=== PATIENT | male | born 1950 | race Caucasian/White ===

== ENCOUNTER 2024-05-08 10:54 | Inpatient (IN) | payer MEDICARE, OTHER, SELFPAY ==
[2024-05-08] VITALS (10 sets, daily range): BP systolic 97–155; BP diastolic 58–81; BMI 28.4; BMI 27.8
[2024-05-08 08:09] LABS: % Basophils 0.3 % (0-2); % Eosinophils 0.1 % (0-6); % Immature Granulocytes 0.7 % (0-0.5); % Lymphocytes 2.1 % (20.5-51.1); % Monocytes 2.9 % (1.7-9.3); % Neutrophils 93.9 % (42.2-75.2); Absolute Immature Granulocytes 0.1 10^3/uL (0-0.05); Absolute Lymphocytes 0.3 10^3/uL (1.2-3.4); Absolute Monocytes 0.5 10^3/uL (0.1-0.6); Absolute Neutrophils 14.6 10^3/uL (1.4-6.5); Hematocrit 43.9 % (39.0-52.0); Hemoglobin 14.6 g/dL (13.0-18.0); Mean Corp Hgb Conc. 33.3 g/dL (33.0-37.0); Mean Corpuscular Volume 87.3 fL (80.0-94.0); Mean Platelet Volume 10.4 fL (7.4-10.4); Nucleated Red Blood Cells % 0 % (-); Platelet Count 203 10^3/uL (130-400); Red Blood Cell Count 5.03 10^6/uL (4.70-6.10); Red Cell Dist. Width 13.5 % (11.5-14.5); White Blood Cell Count 15.5 10^3/uL (4.8-10.8)
[2024-05-08 08:23] LABS: ALT (SGPT) 17 U/L (0-50); AST (SGOT) 25 U/L (17-59); Alkaline Phosphatase 111 U/L (38-126); Blood Urea Nitrogen 20 mg/dl (9-20); Calcium 8.8 mg/dl (8.4-10.2); Carbon Dioxide 31 mmol/L (22-30); Chloride 99 mmol/L (98-107); Estimated Creatinine Clearance 47 ml/min; Glucose 117 mg/dl (70-99); Potassium 4.2 mmol/L (3.5-5.1); Sodium 138 mmol/L (135-145); Total Bilirubin 1.2 mg/dl (0.2-1.3); Total Protein 6.1 g/dl (6.3-8.2); eGFR 52.41
[2024-05-08] MEDS: DUONEB 3 ML INH (08:59)
--- NOTE | 2024-05-08 09:00 | ED.GENMED ---
History of Present Illness
General
Chief Complaint: Fall
Source: patient and ambulance crew
Exam Limitations: none
Time Seen by Provider: 05/08/24 08:34
Nursing documentation reviewed up to this point in time: agreed with
History of Present Illness
History of Present Illness:
74-year-old male presents emergency department complaining of a fall this morning. He complains of left hip pain and weakness. He uses medical marijuana for cancer. She has frequent falls.
Past History
Past History
ED Past Medical History: Cancer (Throat, prostate, skin), COPD, GERD (Hiatal hernia), HTN, Hypercholesterolemia and Hypothyroidism
ED Past Surgical History: Orthopedic and Other (Resection of throat cancer)
Social History
Tobacco: Non-smoker
Alcohol: None
Drug: None
Review of Systems
Review of Systems
Allergies reviewed?: Yes
All Other Systems: Not applicable
Constitutional: Reports no symptoms
EENT: Reports no symptoms
Respiratory: Reports trouble breathing
Cardiac: Reports no symptoms
ABD/GI: Reports no symptoms
: Reports no symptoms
Musculoskeletal: Reports no symptoms
Skin: Reports no symptoms
Neurological: Reports weakness
Endocrine: Reports no symptoms
Hematologic/Lymphatic: Reports no symptoms
Psychiatric: Reports no symptoms
Phy Exam
Physical Exam
Physical Exam:
Physical Exam
General: Appears frail, afebrile
Neck: supple. no meningeal signs. normal posterior pharynx
Heart: s1/s2 regular rate and rhythm, no murmur. equal radial
pulses.
HEENT: Pupils equal round reactive to light, EOMI
Lungs: Mild respiratory distress. Decreased breath sounds at bases bilaterally
Abdomen: normal bowel sounds. not tender. no CVAT
Neuro: alert and oriented. no focal neurological deficits cranial nerves II through XII intact
Skin: no rash
Psychiatric: well kept. interactive and cooperative
Extremities: no edema. no calf tenderness. negative homans. good distal pulses
Course
Orders/Labs/Results
Orders:
Orders
05/08/24 Breakfast
Cholesterol Lowering
At Your Request: Full Participation
Does patient need a safe tray?: No
Cholesterol Lowering: Sodium, 2 Gram
05/08/24 07:52
Electrocardiogram (*1) Urgent
Reason for Study: Fatigue / Weakness
05/08/24 07:53
EKG- Treatment ONCE
05/08/24 07:55
COVID-19 Antigen Urgent
Source: Nasal Swab
05/08/24 07:58
Complete Blood Count/With Diff Urgent
Comprehensive Metabolic Panel Urgent
TSH Urgent
Comment: ADD ON
05/08/24 08:50
Ipratropium/Albuterol Sulfate [Duoneb] 3 ml INH R NOW ONE
05/08/24 08:51
CR Chest - 2 Views Urgent
Comment:
Reason For Exam: hypoxia, decreased lower breath sounds
05/08/24 08:52
Hip, Left 2-3 Views [CR Hip - LT w/wo Pel 2-3 Vw*] Urgent
Comment:
Reason For Exam: left hip pain
Include a pelvis x-ray?: Yes
05/08/24 09:00
Influenza A+B Rapid Molecular Urgent
JEAN Source: Nasal Swab
Specimen Description:
05/08/24 09:52
Azithromycin 500 mg/250 ml [Zithromax Infusion] 500 mg in 250 ml IV NOW
CefTRIAXone [Rocephin] 2,000 mg IV NOW STA
05/08/24 09:59
Sterile Water [Sterile Water For Injection] 20 ml .ROUTE .STK-MED
05/08/24 10:08
Blood Culture Q30M
JEAN Source: Blood/Venous
Specimen Description:
Aztreonam [Azactam] 2,000 mg IV NOW STA
MetroNIDAZOLE 500 MG/100 ML [Flagyl 500 mg] 100 ml IV NOW
Vancomycin [Vancocin] 2,000 mg 0.9% Sodium Chloride 500 ml [Nss] 500 ml IV NOW
05/08/24 10:09
Blood Culture Q30M
JEAN Source: Blood/Venous
Specimen Description:
05/08/24 10:30
Add On- LAB Urgent
Tests Added?: TSH
0.9% Sodium Chloride 1000 ml [Nss] 1,000 ml IV 80 mls/hr
05/08/24 10:35
Admit/Transfer Patient As Directed
Co-Sign Provider:
Level of Care: Inpatient admission
Assign to:: Medical/Surgical
Physician / Group: Hospitalist
Diagnosis: CAP
Reason for Hospitalization: CAP
Expected length of stay greater than two midnights?: Yes
ELOS- Estimated Length of Stay in days: 3
I certify the patient meets the requirements for IP care: Yes
PRN Pain Medication Management As Directed
May give lesser potent ordered pain med per pt: Yes
preference::
Protocol:: Medication orders for pain may be administered in a
manner that supports deferring to patient preference
when the pt is:
- Requesting an ordered lesser potent pain medication.
Least to most potent pain medications are defined
as: acetaminophen < NSAID < tramadol < opioids
(morphine, oxycodone, hydromorphone).
- Requesting a lesser dose of the same medication IF
ORDERED.
- Requesting a less intrusive route of administration
if both routes are prescribed by the provider (PO <
IV).
05/08/24 10:37
Code Status As Directed
Resuscitation Status: Full Code
05/08/24 10:42
Ot Eval And Treat Routine
Pt Eval And Treat Routine
Activity Level: Out of Bed-Early Mobility
05/08/24 11:15
DDimer [D-Dimer] Urgent
Procalcitonin Urgent
PCT Algorithmm Indication: Respiratory
05/08/24 12:28
Acetaminophen [Tylenol] 650 mg PO Q4HPRN PRN
Albuterol [ProAIR HFA INHALER] 2 puff INH R Q4HPRN PRN
Bisacodyl [Dulcolax] 10 mg RECTAL [id number] PRN
Docusate W/Senna [Senokot-S] 1 tablet PO BIDPRN PRN
Ipratropium/Albuterol Sulfate [Duoneb] 3 ml INH R Q4HPRN PRN
Polyethylene Glycol Powder [Miralax] 17 grams PO DAILYPRN PRN
Prednisone [Deltasone] 40 mg PO DAILY
05/08/24 12:28
Sputum Culture [Respiratory Culture/Gram Stain] Routine
JEAN Source: Sputum
Specimen Description:
Activity As Directed
Activity Level: Out of Bed-Early Mobility
Bladder Scan As Directed
Follow Bladder Retention/Intermittent Cath Algorithm?: Yes
PRN if no void in __ hours: 6
Frequency: Per Retention Algorithm
If Bladder Scan Result >: 400
then:: Straight cath
Straight Cath As Directed
Frequency: Per Retention Algorithm
Additional Instructions: straight cath as needed per acute urinary retention algorithm for 24 hrs
Additional Instructions: for bladder scan greater than 400 mL
Vital Signs As Directed
Frequency: Per unit guidelines
O2 Therapy [RESP] Routine
Titrate/Wean O2 to maintain O2 sat greater than (%): 90
DX Deep Vein Thrombosis Video Routine
05/08/24 12:37
Hydrocodone 5/APAP 325 [[place] 5/325] 1 tablet PO Q8H PRN
05/08/24 13:03
Urine Creatinine Routine
Date Specimen was Collected: 05/08/24
Time Specimen was Collected: 13:01
Urine Culture Reflexed from UA [Urinalysis Reflex To Culture] Routine
Date Specimen was Collected: 05/08/24
Time Specimen was Collected: 13:01
Urine Sodium Routine
Date Specimen was Collected: 05/08/24
Time Specimen was Collected: 13:01
Legionella Urinary Antigen Routine
JEAN Source: Urine
Specimen Description:
Strep pneumoniae Antigen Routine
JEAN Source: Urine
Specimen Description:
05/08/24 14:00
CefTRIAXone [Rocephin] 1,000 mg IV Q24H
05/08/24 16:00
Heparin 5,000 units SC Q8
05/08/24 20:00
Doxycycline [Vibramycin] 100 mg PO Q12
Fluticasone/Salmeterol 115/21 [Advair Hfa 115/21 Mcg Inhaler] 2 puff INH R BID
05/08/24 22:00
Temazepam [Restoril] 30 mg PO HS
05/09/24 06:00
Complete Blood Count/With Diff IN AM
Comprehensive Metabolic Panel IN AM
Levothyroxine [Synthroid] 50 mcg PO DAILY@0600
05/09/24 08:00
Montelukast Sodium [Singulair] 10 mg PO DAILY
Multivitamin [Theragran] 1 tablet PO DAILY
Pantoprazole [Protonix] 40 mg PO DAILY
Abnormal Lab Results
05/08/24
07:58
WBC 15.5 H 10^3/uL
(4.8-10.8)
Abs Immat Gran (auto) 0.1 H 10^3/uL
(0-0.05)
Absolute Neuts (auto) 14.6 H 10^3/uL
(1.4-6.5)
Absolute Lymphs (auto) 0.3 L 10^3/uL
(1.2-3.4)
Immature Gran % 0.7 H %
(0-0.5)
Neutrophils % 93.9 H %
(42.2-75.2)
Lymphocytes % 2.1 L %
(20.5-51.1)
Carbon Dioxide 31 H mmol/L
(22-30)
Creatinine 1.4 H mg/dL
(0.7-1.3)
Glucose 117 H mg/dl
(70-99)
Total Protein 6.1 L g/dl
(6.3-8.2)
05/08/24 07:58
05/08/24 07:58
Vital Signs
Initial and Last Documented VS:
Initial Vital Signs
Temp Pulse Resp BP Pulse Ox
97.9 F 98 16 140/70 91
05/08/24 07:46 05/08/24 07:46 05/08/24 07:46 05/08/24 07:46 05/08/24 07:46
Last Documented Vital Signs
Temp Pulse Resp BP Pulse Ox
98.1 F 101 16 155/81 96
05/08/24 13:02 05/08/24 13:02 05/08/24 13:02 05/08/24 13:02 05/08/24 13:55
MDM/Problems Addressed
Differential Diagnosis Includes:
Pneumonia, CHF
MDM/Problems Addressed:
74-year-old male with pneumonia. Admit to hospitalist.
Chronic conditions affecting care: COPD
Acute Exacerbation and/or Progression of Chronic Illness: COPD
*Radiology
Radiology exam reviewed: radiology read reviewed (Chest x-ray shows right-sided pneumonia)
*Pulse Oximetry
Patient hypoxic: yes
*EKG
EKG Intrepretation Date: 05/08/24
EKG Intrepretation Time: 07:57
Interpretation: normal
Comparison EKG: no changes
Heart Rate: 95
Rate: normal
Rhythm: sinus
[place]: normal axis
Interval: normal interval
QRS Pattern: normal QRS
Ischemia: no ischemia
*Rv Repair Technician Interpretation
Rate: normal
Interpretation: normal
Heart Rate: 95
Rhythm: sinus
*Critical Care Note
Total Time (30-74mins, 75-104mins- exclusive of procedures): Not Applicable
Data Reviewed
Review of Other/Old Records Reveals: Labs
Further Testing Considered But Not Given:
admit indicated
Patient Management
Social determinants of health affecting care: Living situation and Strong social support
Discussion with other providers: Hospitalist
Escalation/DeEscalation of care consider admission/obs:
admit indicated
ED Attending Note
-
Portions of this chart may have been created with voice recognition software.� Occasional wrong word or��sound alike� substitutions may have occurred due to the inherent limitations of voice recognition software.
Discharge Plan
Departure
Patient Disposition: Admit
Date of Disposition: 05/08/24
Time of Disposition: 09:57
Admit to: Telemetry
Presentation/result/management discussed w/ accepting MD/DO: Hospitalist
Patient with high blood pressure during this ER visit?: Yes
Condition: Fair
Discharge Problem:
Pneumonia involving right lung, Fall, Acute renal failure
Interventions
Interventions:
*Risk Screen - Suicide Last Done: 05/08/24 07:46
*General Assessment Last Done: 05/08/24 07:46
*Neglect/Abuse Screening Last Done: 05/08/24 07:46
ED- Fall Risk Assessment Last Done: 05/08/24 07:46
*ED COVID-19 Vaccine History Last Done: 05/08/24 07:46
*Nursing Disposition Last Done: 05/08/24 12:30
ED-Musculoskeletal Assessment Last Done: 05/08/24 07:46
ED- Neurological Assessment Last Done: 05/08/24 07:46
ED-Skin Assessment Last Done: 05/08/24 07:46
Discharge Date and Time
Discharge Date/Time: 05/08/24 12:31
[2024-05-08 09:23] LABS: COVID-19 Antigen Negative (Negative)
[2024-05-08] MEDS: AZACTAM 2000 MG IV (10:18)
[2024-05-08] MEDS: FLAGYL 500 MG 100 IV (10:22)
--- NOTE | 2024-05-08 10:41 | HPS.HSE ---
Family Physician
-
Family Physician: Rob Seth
Chief Complaint
-
weakness
History of Present Illness
74yo M with skin CA, throat CA, prostate CA, hypothyroidism, spinal stimulator, COPD, [facility] with profound weakness. He fell from his bed and could not get up this AM. While in ED he was found to have RUL and RML pneumonia. On
bedside assessment - patient has no focal neurological deficit, denied LOC, no LE paresthesia, no cough, fever, chest pain.
No overt hip pain, XR pending, but clinically no cocern for Fx
Medical History
Past Medical History
Past Medical History: Reports Other
Additional Past Medical History:
see HPI
Past Surgical History: Reports Other
Additional Past Surgical History:
See HPI
Social History
Tobacco: Former Smoker
Alcohol: None
Drug: Marijuana
Family History
Family History: Not pertinent
Allergies / Home Medications
Allergies reflects when Allergies were last updated in [facility].
Home Medications with original date entered in [facility]
Allergy/Medication List:
Allergies
Allergy/AdvReac Type Severity Reaction Status Date / Time
Penicillins Allergy Unknown Nausea / Verified 05/08/24 07:57
Vomiting
Home Medications
levothyroxine 50 mcg tablet 50 mcg PO DAILY Thyroid 09/04/18
multivitamin with folic acid 400 mcg tablet (Tab-A-Allyson) 1 tab PO DAILY Supplement 09/04/18
gabapentin 300 mg capsule 300 mg PO TID Pain 02/17/20
rosuvastatin 10 mg tablet 10 mg PO QPM High cholesterol 02/17/20
albuterol sulfate 90 mcg/actuation aerosol inhaler 2 puff inhalation R Q4HPRN PRN sob 03/19/20
temazepam 15 mg capsule 30 mg PO HS Sleep 03/19/20
cevimeline 30 mg capsule (Evoxac) 30 mg PO TID DRY MOUTH 12/25/20
fluticasone 100 mcg-salmeterol 50 mcg/dose blistr powdr for inhalation 1 puff inhalation R DAILY Lung/breathing issues 12/25/20
montelukast 10 mg tablet 10 mg PO DAILY Lung/breathing issues 12/25/20
prednisolone 15 mg/5 mL oral solution 1 drp BOTH EYES DAILY Anti-inflammatory 12/25/20
pantoprazole 40 mg tablet,delayed release 40 mg PO DAILY #30 tabs 12/27/20
cyclobenzaprine 10 mg tablet 10 mg PO TID PRN muscle spasm #10 tabs 11/08/22
hydrocodone 5 mg-acetaminophen 300 mg tablet 1 tab PO Q8H PRN Pain #14 tabs 11/08/22
Review of Systems
-
History Source: Patient
A 12 point ROS was completed and negative except as noted: Yes
Constitutional: Reports See HPI
Physical Exam
Vital Signs
Vital Signs
Temp Pulse Resp BP Pulse Ox
97.9 F 97 17 124/67 94
05/08/24 07:46 05/08/24 10:15 05/08/24 10:15 05/08/24 10:00 05/08/24 10:15
Physical Exam
General: Well Developed, Well Nourished and No Apparent Distress
HEENT: NormoCephalic, Anicteric and Moist mucous membranes
Respiratory: Clear; No Wheezes, Rales or Crackles
Cardiac: S1/S2 and Regular Rhythm; No Murmur
GI: Soft, Non Tender and Non Distended
Genito-urinary: No costovertebral tender
Musculoskeletal: No Clubbing, No Cyanosis and No Edema
Skin: Warm; No Rash or Jaundice
Neuro: Awake, Alert, Oriented and AO x 3
Psych: Calm
Laboratory Results
-
05/08/24 07:58
05/08/24 07:58
Laboratory Results
Total Bilirubin 1.2 mg/dl (0.2-1.3) 05/08/24 07:58
AST 25 U/L (17-59) 05/08/24 07:58
ALT 17 U/L (0-50) 05/08/24 07:58
Alkaline Phosphatase 111 U/L (38-126) 05/08/24 07:58
Data Reviewed
-
Diagnostic Radiology: Report Reviewed by me
Lab Data: Labs Reviewed by me
Impression/Plan
-
A/P:
#RML and RUL CAP with unspecified organism
COVID-19 and Influenza PCR neg
sputum Cx if possible
follow Bcx
Ceftriaxone (not true allergy to pennicilins)\\Doxy
follow procalcitonin
Check S.pneumonia and legionella urinary AG
#Ambulatory disfunction 2/2 acute disease
PT/OT
#Hypothyroidism
check TSH, cont synthroid
#Acute hypoxic insufficiency
#COPD with mild exacerbation
cont bronchodilators
short course of steroids
Wean off O2
check DDimer
#RUPA
Cr baseline 1.0
hydrate, follow Cr
watch for retention - serial bladder scan
Urine study
#Chronic pain
#HLD
#HTN, essential
#Neuropathy
#Insomnia
cont home meds
DVT ppx Hep
Full code - discussed in details with patient
I have spent at least 75min reviewing chart, test results and direct patient care
[2024-05-08] MEDS: VANCOCIN 540 MG IV (11:30)
[2024-05-08 11:38] LABS: D-Dimer 2.26 ug/mlFEU (0.00-0.50)
--- NOTE | 2024-05-08 12:08 | W.PN.UPDATE ---
Update Note
Progress Note Update
significantly elevated ddimer - CTA chest ordered, benefit overweight risk with ddimer >2 timer ULN
[2024-05-08 12:32] LABS: Procalcitonin 1.71 ng/ml (0.0-0.25)
[2024-05-08 12:58] LABS: TSH 4.27 uIU/ml (0.47-4.68)
[2024-05-08 13:33] LABS: Urine Albumin 2+ (Neg - Trace); Urine Bilirubin Negative (Negative); Urine Character Clear (Clear); Urine Color Yellow; Urine Glucose Negative (Negative); Urine Ketone Negative (Negative); Urine Leukocyte 1+ (Negative); Urine Nitrite Negative (Negative); Urine Occult Blood Negative (Negative); Urine Urobilinogen 1+ (Neg - 1+)
--- NOTE | 2024-05-08 14:01 | PTCARENOTE ---
Received patient from ED via stretcher. AAOx3, ambulated to bed with assistance x1 and rolling walker. Assessed and oriented to room. Call gruber in close reach.
[2024-05-08 14:15] LABS: Urine Sodium 77 mmol/L (30-90)
[2024-05-08 14:34] LABS: Urine Mucus Moderate
[2024-05-08 14:35] LABS: Urine Amorphous Seen
[2024-05-08 14:36] LABS: Urine Red Blood Cell 0-2 /HPF (0-2)
[2024-05-08] MEDS: DELTASONE 40 MG PO (15:56)
[2024-05-08] MEDS: NSS 1000 IV (15:56)
[2024-05-08] MEDS: STERILE WATER FOR INJECTION 10 ML IV (15:57)
[2024-05-08] MEDS: ROCEPHIN 1000 MG IV (15:57)
[2024-05-08 16:15] LABS: APTT 27.9 Sec (23.4-35.0)
[2024-05-08] MEDS: HEPARIN 25000 UNITS/250 ML IV (16:54)
[2024-05-08] MEDS: VIBRAMYCIN 100 MG PO (19:51)
[2024-05-08] MEDS: SENOKOT-S 1 TABLET PO (19:52)
[2024-05-08] MEDS: ADVAIR HFA 115/21 MCG INHALER 2 PUFF INH (19:57)
[2024-05-08] MEDS: RESTORIL 30 MG PO (21:17)
[2024-05-08] MEDS: DULCOLAX 10 MG RECTAL (21:36)
[2024-05-08 23:46] LABS: APTT 131.4 Sec (23.4-35.0)
[2024-05-09] MEDS: NSS 1000 IV (01:18)
--- NOTE | 2024-05-09 04:19 | W.PN.UPDATE ---
Update Note
Progress Note Update
RN states some confusion at night. ? poss related to Restoril 30mg (pt has taken med for years). May need to decrease dose while in hospital.
While more awake he was able to tell nurse when he fell yesterday he hit head. No sure of LOC. Will add Ct head
[2024-05-09] MEDS: SYNTHROID 50 MCG PO (05:25)
[2024-05-09 07:20] LABS: % Basophils 0.2 % (0-2); % Immature Granulocytes 0.9 % (0-0.5); % Lymphocytes 5.2 % (20.5-51.1); % Monocytes 1.8 % (1.7-9.3); % Neutrophils 91.9 % (42.2-75.2); Absolute Immature Granulocytes 0.2 10^3/uL (0-0.05); Absolute Monocytes 0.3 10^3/uL (0.1-0.6); Absolute Neutrophils 16.7 10^3/uL (1.4-6.5); Hematocrit 40.9 % (39.0-52.0); Hemoglobin 13.3 g/dL (13.0-18.0); Mean Corp Hgb Conc. 32.5 g/dL (33.0-37.0); Mean Corpuscular Hgb 28.9 pg (27.0-31.0); Mean Corpuscular Volume 88.9 fL (80.0-94.0); Mean Platelet Volume 10.8 fL (7.4-10.4); Nucleated Red Blood Cells % 0 % (-); Platelet Count 187 10^3/uL (130-400); Red Cell Dist. Width 13.7 % (11.5-14.5); White Blood Cell Count 18.1 10^3/uL (4.8-10.8)
[2024-05-09 07:26] LABS: APTT 97.4 Sec (23.4-35.0)
[2024-05-09 07:30] VITALS: BP 138/70
[2024-05-09 07:47] LABS: ALT (SGPT) 15 U/L (0-50); AST (SGOT) 26 U/L (17-59); Albumin 3.7 g/dl (3.5-5.0); Alkaline Phosphatase 85 U/L (38-126); Blood Urea Nitrogen 19 mg/dl (9-20); Calcium 8.6 mg/dl (8.4-10.2); Carbon Dioxide 28 mmol/L (22-30); Chloride 99 mmol/L (98-107); Estimated Creatinine Clearance 73 ml/min; Glucose 108 mg/dl (70-99); Potassium 4.6 mmol/L (3.5-5.1); Sodium 136 mmol/L (135-145); Total Bilirubin 0.9 mg/dl (0.2-1.3); Total Protein 5.8 g/dl (6.3-8.2); eGFR > 60.00
[2024-05-09] MEDS: ADVAIR HFA 115/21 MCG INHALER 2 PUFF INH ×2 (08:20→19:18)
--- NOTE | 2024-05-09 08:44 | W.PN.HOSP.TC ---
Today's Communication/Plan
-
switch to unasyn
cont hep
ETL MANAGER
patient on baseline mentation, decrease temazepam, can proceed with CT head since will be on AC now
Assessment / Plan
Assessment / Plan
74yo M with skin CA, throat CA, prostate CA, hypothyroidism, spinal stimulator, COPD, [facility] [facility] [facility] with profound weakness. He fell from his bed and could not get up this AM. While in ED he was found to have RUL and RML pneumonia. Has long
Hx of dysphaagia and was offered PEG 15 years ago, since then - managed at home with mostly liquid diet.
ALso found b/l LE DVT. Patient with Hx of FactorV leiden. Will be started on anticoagulation, counseled extensively to avoid trauma and always have someone besides when ambulationg due to Hx of previous falls.
A/P:
#RML and RUL pneumonia with unspecified organism, concern for aspiration with Hx of dysphagia
Dysphagia diet
ETL MANAGER: patient s open for PEG discussion if needed
COVID-19 and Influenza PCR neg
sputum Cx if possible
Bcx NTD
Ceftriaxone (not true allergy to pennicilins)\\Doxy on admission, now with concern for aspiration - switch to Unasyn
follow procalcitonin
S.pneumonia and legionella urinary AG neg
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
anticoagulation: heparin while possible PEG, then Eliquis on D/C
#Ambulatory disfunction 2/2 acute disease, dehydration wexacerbated by Temazepam
PT/OT
Fall precautions
#Hypothyroidism
TSH WNL, cont synthroid
#Acute hypoxic insufficiency
#COPD with mild exacerbation
cont bronchodilators
short course of steroids
Wean off O2
#RUPA
resolved on hydration, probably 2/2 poor oral intake
Cr baseline 1.0
#In hospital delirium
2/2 sundowning, transient
decrease temazepam
frequent reorientation
#Chronic pain
#HLD
#HTN, essential
#Neuropathy
#Insomnia
cont home meds
DVT ppx Hep
Full code - discussed in details with patient
I have spent at least 55min reviewing chart, test results and direct patient care
Anticipated Discharge: > 48 hours
Subjective/Interval History
-
Date of Service: May 09, 2024
Objective Data
-
Labs:
Laboratory Results
05/08/24 05/09/24 05/09/24
23:18 06:58 13:30
WBC 18.1 H
Hgb 13.3
Hct 40.9
Plt Count 187
APTT 131.4 H 97.4 H Pending
Sodium 136
Potassium 4.6
Chloride 99
Carbon Dioxide 28
BUN 19
Creatinine 0.9
Glucose 108 H
Calcium 8.6
Total Bilirubin 0.9
AST 26
ALT 15
Alkaline Phosphatase 85
Vital Signs:
Vital Signs
Temp Pulse Resp BP Pulse Ox
98.7 F 84 17 138/70 94
05/09/24 07:30 05/09/24 08:24 05/09/24 08:24 05/09/24 07:30 05/09/24 08:24
I&O
05/08/24 05/09/24 05/10/24
06:59 06:59 06:59
Intake Total 880 / 880
Output Total 650 / 650
Balance 230 / 230
Review of Systems
-
History Source: Patient
All other systems: Reviewed and negative
Physical Exam
-
General: No Apparent Distress
HEENT: Normocephalic
Respiratory: Clear to Auscultation
GI: Soft, Nontender and Nondistended
Genito-urinary: No Costovertebral Tender
Musculoskeletal: No Clubbing, No Cyanosis and No Edema
Neuro: Awake, Alert, Oriented and AO x 3
Psych: Calm
[2024-05-09] MEDS: HEPARIN 25000 UNITS/250 ML IV (10:30)
[2024-05-09] MEDS: SINGULAIR 10 MG PO (10:35)
[2024-05-09] MEDS: PROTONIX 40 MG PO (10:35)
[2024-05-09] MEDS: VIBRAMYCIN 100 MG PO ×2 (10:35→20:18)
[2024-05-09] MEDS: DELTASONE 40 MG PO (10:35)
[2024-05-09] MEDS: STERILE WATER FOR INJECTION IV (10:35)
[2024-05-09] MEDS: THERAGRAN 1 TABLET PO (10:35)
[2024-05-09] MEDS: UNASYN IV ×3 (10:35→21:05)
--- NOTE | 2024-05-09 11:17 | CM ---
CM spoke with the patient at bedside; IA completed
Pt reports living with his spouse in a 2SH with 1STE
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
No history of SNF; has had [facility] for home care needs and has a spc & r/w for ambulatory aid
Plan: CM will continue to follow patient and assist with d/c needs as indicated.
Pharmacy: [facility]
PCP: Rob Seth
[2024-05-09] MEDS: NORCO 5/325 1 TABLET PO (11:38)
[2024-05-09 15:05] VITALS: BP 121/61
[2024-05-09 15:06] LABS: APTT 58.8 Sec (23.4-35.0)
--- NOTE | 2024-05-09 15:35 | PN.CDI ---
CDI
- -
CDI:
Physician Documentation Request
Admit Date: 05/08/24 10:54
Dear Doctor Bre,
05/09 progress note states 'Factor V leiden with b/l LE DVT'
Please clarify which of the following accurately represents the acuity of the DVT
____ Acute
Chronic
____ Other
Use of terms such as suspected, likely, concern for, or probable (associated with a specific diagnosis that is being evaluated, monitored, or treated as if it exists) are acceptable and can be coded in the inpatient setting, when documented at the
time of discharge.
Thank you,
Missy Walker RN, BSN
CDI Specialist
tiger text
Please use your independent medical judgment in providing your response.
[2024-05-09] MEDS: HEPARIN 7000 UNITS IV (15:48)
--- NOTE | 2024-05-09 16:48 | PTOTSP ---
ST Acute Care Evaluation
Pt currently presents with clinical signs of suspected pharyngeal dysphagia as evidenced by delayed coughing on liquid washes s/p ingestion of solids, suspicious for pharyngeal stasis with inconsistent peristalsis - consistent with previous VFSS
results.
Recommendations:
- Upgrade to minced and moist solids, continue with thin liquids, and meds whole in puree.
- Aspiration and reflux precautions: HOB upright for PO intake and for 60 minutes after PO intake; small bites/sips; alternate bites/sips; slow intake rate.
- Video fluoroscopic swallow study (VFSS) for more information regarding the pt's current swallowing function.
- BOX FEEDER to provide additional recommendations upon completion of the VFSS.
[2024-05-09] MEDS: RESTORIL 7.5 MG PO (21:05)
[2024-05-09 23:19] LABS: APTT > 200 Sec (23.4-35.0)
[2024-05-09 23:49] VITALS: BP 136/70
[2024-05-10] MEDS: SYNTHROID 50 MCG PO (03:01)
[2024-05-10] MEDS: UNASYN IV ×4 (03:01→21:33)
[2024-05-10] MEDS: NORCO 5/325 1 TABLET PO (05:13)
[2024-05-10] MEDS: HEPARIN 25000 UNITS/250 ML IV (06:29)
[2024-05-10 07:05] VITALS: BP 181/92
[2024-05-10] MEDS: ADVAIR HFA 115/21 MCG INHALER 2 PUFF INH ×2 (07:10→20:12)
[2024-05-10 07:44] LABS: % Basophils 0.2 % (0-2); % Eosinophils 0.2 % (0-6); % Immature Granulocytes 0.7 % (0-0.5); % Lymphocytes 7.6 % (20.5-51.1); % Monocytes 3.1 % (1.7-9.3); % Neutrophils 88.2 % (42.2-75.2); Absolute Immature Granulocytes 0.1 10^3/uL (0-0.05); Absolute Lymphocytes 1.3 10^3/uL (1.2-3.4); Absolute Monocytes 0.5 10^3/uL (0.1-0.6); Absolute Neutrophils 15.2 10^3/uL (1.4-6.5); Hematocrit 41.5 % (39.0-52.0); Hemoglobin 13.7 g/dL (13.0-18.0); Mean Corpuscular Hgb 29.3 pg (27.0-31.0); Mean Corpuscular Volume 88.7 fL (80.0-94.0); Mean Platelet Volume 10.9 fL (7.4-10.4); Nucleated Red Blood Cells % 0 % (-); Platelet Count 188 10^3/uL (130-400); Red Blood Cell Count 4.68 10^6/uL (4.70-6.10); White Blood Cell Count 17.3 10^3/uL (4.8-10.8)
[2024-05-10 07:57] LABS: APTT 70.7 Sec (23.4-35.0)
[2024-05-10 08:20] LABS: Blood Urea Nitrogen 19 mg/dl (9-20); Carbon Dioxide 28 mmol/L (22-30); Chloride 97 mmol/L (98-107); Estimated Creatinine Clearance 73 ml/min; Glucose 93 mg/dl (70-99); Potassium 3.8 mmol/L (3.5-5.1); Sodium 136 mmol/L (135-145); eGFR > 60.00
[2024-05-10] MEDS: PROTONIX 40 MG PO (08:34)
[2024-05-10] MEDS: VIBRAMYCIN 100 MG PO ×2 (08:34→20:43)
[2024-05-10] MEDS: DELTASONE 40 MG PO (08:35)
[2024-05-10] MEDS: SINGULAIR 10 MG PO (08:35)
[2024-05-10] MEDS: THERAGRAN 1 TABLET PO (08:35)
[2024-05-10] MEDS: HEPARIN 3500 UNITS IV (08:36)
--- NOTE | 2024-05-10 09:35 | W.PN.HOSP.TC ---
Today's Communication/Plan
-
cont Abx
VSE today
PT/OT for dispo as D/C possible in AM
Assessment / Plan
Assessment / Plan
74yo M with skin CA, throat CA, prostate CA, hypothyroidism, spinal stimulator, COPD, [facility] [facility] with profound weakness. He fell from his bed and could not get up this AM. While in ED he was found to have RUL and RML pneumonia. Has long
Hx of dysphaagia and was offered PEG 15 years ago, since then - managed at home with mostly liquid diet.
ALso found b/l LE DVT. Patient with Hx of FactorV leiden. Will be started on anticoagulation, counseled extensively to avoid trauma and always have someone besides when ambulationg due to Hx of previous falls.
A/P:
#RML and RUL pneumonia with unspecified organism, concern for aspiration with Hx of dysphagia
Dysphagia diet
HEALTH AND WELLNESS SALES CONSULTANT: patient s open for PEG discussion if needed
COVID-19 and Influenza PCR neg
sputum Cx if possible
Bcx NTD
Ceftriaxone (not true allergy to penicillins)\\Doxy on admission, now with concern for aspiration - switch to Unasyn
follow procalcitonin
S.pneumonia and legionella urinary AG neg
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
anticoagulation: heparin while r/o advanced dysphagia, then Eliquis on D/C
#Ambulatory disfunction 2/2 acute disease, dehydration exacerbated by Temazepam
PT/OT
Fall precautions
#Hypothyroidism
TSH WNL, cont Synthroid
#Acute hypoxic insufficiency
#COPD with mild exacerbation
cont bronchodilators
short course of steroids
Wean off O2
#RUPA
resolved on hydration, probably 2/2 poor oral intake
Cr baseline 1.0
#In hospital delirium
2/2 sundowning, transient
decrease temazepam
frequent reorientation
#Chronic pain
#HLD
#HTN, essential
#Neuropathy
#Insomnia
cont home meds
DVT ppx Hep
Full code - discussed in details with patient
I have spent at least 35min reviewing chart, test results and direct patient care
Anticipated Discharge: 24 - 48 hours
Subjective/Interval History
-
Date of Service: May 10, 2024
Objective Data
-
Labs:
Laboratory Results
05/09/24 05/10/24 05/10/24
22:45 07:28 14:40
WBC 17.3 H
Hgb 13.7
Hct 41.5
Plt Count 188
APTT > 200 H* 70.7 H Pending
Sodium 136
Potassium 3.8
Chloride 97 L
Carbon Dioxide 28
BUN 19
Creatinine 0.9
Glucose 93
Calcium 9.0
Vital Signs:
Vital Signs
Temp Pulse Resp BP Pulse Ox
97.6 F 89 18 181/92 95
05/10/24 07:05 05/10/24 07:14 05/10/24 07:14 05/10/24 07:05 05/10/24 07:14
I&O
05/09/24 05/10/24 05/11/24
06:59 06:59 06:59
Intake Total 880 / 880 960 / 960
Output Total 650 / 650 975 / 975 200 / 200
Balance 230 / 230 -15 / -15 -200 / -200
Review of Systems
-
History Source: Patient
All other systems: Reviewed and negative
Physical Exam
-
General: No Apparent Distress
HEENT: Normocephalic
Respiratory: Clear to Auscultation
Cardiac: Regular Rhythm
Musculoskeletal: No Clubbing, No Cyanosis and No Edema
Neuro: Awake, Alert, Oriented and AO x 3
Psych: Calm
[2024-05-10] MEDS: ELIQUIS 10 MG PO ×2 (11:41→20:43)
[2024-05-10] MEDS: STERILE WATER FOR INJECTION IV (11:41)
--- NOTE | 2024-05-10 11:57 | PTOTSP ---
Videofluoroscopic swallow study
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 Aspiration of thin liquids with a delayed/ineffective cough response. Risk for aspiration elevated (i.e., with
consecutive drinking of mildly thick liquids and solids due to deep penetration that did not fully clear; moderate retention with � piece of solid solid that could not fully clear with mildly thick liquid wash).
Recommendations:
1. IDDSI Level 5 minced and moist, IDDSI Level 2 mildly thick liquids
2. Medications: crushed in puree
3. Oral care 3-5x daily and before/after oral PO
4. Strategies: upright to 90 degrees, small single sips/bites, slow rate, alternate sips/bites, intermittent cough/swallow
5. Aspiration Risk Hydration Protocol - ice chips/sips of thin water in between meals after oral care without other food
6. Dysphagia tx at the acute care level for education.
6. Dysphagia tx at the outpatient level for education, EMST. Progress may be limited given etiology secondary to late effects of XRT with head/neck cancer.
Extensive education completed with patient. Patient refused thickened liquids (see patient care note) today and in past initiated PO diet for pleasure. Strongly recommend continued goals of care discussions and information about medical picture
with patient/medical decision maker and physician given chronic dysphagia, repeated PNAs, and patient/staff reported cognitive changes.
Patient preferred diet after education:
1. IDDSI Level 5 minced and moist, IDDSI Level 0 Thin liquids
--- NOTE | 2024-05-10 14:26 | CM ---
CM met with patient to discuss pharmacy coverage. Per his pharmacy and patient, he does not currently have pharmacy coverage, as he advised it recently. Pt provided with 30 day free Eliquis card. He plans to call his insurance company to
see if he can add pharmacy coverage, but understands that if he cannot get coveragem he would need to pay for the Rx after the 30 day card has been used.
Plan: Discharge to home with no needs. Pt's will transport home.
[2024-05-10 14:32] LABS: APTT 36.8 Sec (23.4-35.0)
[2024-05-10 14:54] VITALS: BP 179/97; PULSE 99; O2SAT 96
[2024-05-10 14:57] VITALS: BP 179/82; PULSE 101; O2SAT 95
[2024-05-10 15:00] VITALS: BP 112/83
[2024-05-10] MEDS: RESTORIL 7.5 MG PO (21:33)
[2024-05-10 23:55] VITALS: BP 158/88
[2024-05-11] MEDS: UNASYN IV ×2 (04:53→09:00)
[2024-05-11] MEDS: SYNTHROID 50 MCG PO (04:54)
[2024-05-11 07:05] VITALS: BP 139/73
[2024-05-11 07:25] VITALS: BP 172/95
[2024-05-11] MEDS: ADVAIR HFA 115/21 MCG INHALER 2 PUFF INH (07:48)
[2024-05-11 08:26] LABS: % Basophils 0.2 % (0-2); % Eosinophils 0.2 % (0-6); % Immature Granulocytes 0.9 % (0-0.5); % Lymphocytes 7.8 % (20.5-51.1); % Monocytes 4.2 % (1.7-9.3); % Neutrophils 86.7 % (42.2-75.2); Absolute Immature Granulocytes 0.1 10^3/uL (0-0.05); Absolute Monocytes 0.5 10^3/uL (0.1-0.6); Absolute Neutrophils 11.1 10^3/uL (1.4-6.5); Hematocrit 39.2 % (39.0-52.0); Hemoglobin 13.3 g/dL (13.0-18.0); Mean Corp Hgb Conc. 33.9 g/dL (33.0-37.0); Mean Corpuscular Hgb 29.1 pg (27.0-31.0); Mean Corpuscular Volume 85.8 fL (80.0-94.0); Mean Platelet Volume 10.4 fL (7.4-10.4); Nucleated Red Blood Cells % 0 % (-); Platelet Count 196 10^3/uL (130-400); Red Blood Cell Count 4.57 10^6/uL (4.70-6.10); Red Cell Dist. Width 13.8 % (11.5-14.5); White Blood Cell Count 12.8 10^3/uL (4.8-10.8)
[2024-05-11] MEDS: ELIQUIS 10 MG PO (09:00)
[2024-05-11] MEDS: THERAGRAN 1 TABLET PO (09:00)
[2024-05-11] MEDS: SINGULAIR 10 MG PO (09:00)
[2024-05-11] MEDS: VIBRAMYCIN 100 MG PO (09:00)
[2024-05-11] MEDS: PROTONIX 40 MG PO (09:00)
[2024-05-11] MEDS: SENOKOT-S 1 TABLET PO (09:00)
[2024-05-11 09:05] VITALS: BP 165/86
[2024-05-11 09:08] LABS: ALT (SGPT) 19 U/L (0-50); AST (SGOT) 32 U/L (17-59); Albumin 3.9 g/dl (3.5-5.0); Alkaline Phosphatase 97 U/L (38-126); Blood Urea Nitrogen 15 mg/dl (9-20); Calcium 8.9 mg/dl (8.4-10.2); Carbon Dioxide 32 mmol/L (22-30); Chloride 98 mmol/L (98-107); Estimated Creatinine Clearance 66 ml/min; Glucose 94 mg/dl (70-99); Potassium 3.8 mmol/L (3.5-5.1); Sodium 137 mmol/L (135-145); Total Bilirubin 0.9 mg/dl (0.2-1.3); Total Protein 6.2 g/dl (6.3-8.2); eGFR > 60.00
[2024-05-11 09:33] LABS: Procalcitonin 0.75 ng/ml (0.0-0.25)
[2024-05-11 09:37] LABS: Erythrocyte Sed Rate 32 mm/hour (0-20)
--- NOTE | 2024-05-11 10:24 | CM ---
Patient seen at bedside with daughter Jessica
Daughter interested in [facility]-Patient & daughter agreeable to [facility] after options reviewed.
tt hospitalist for CM consult for [facility]
IMM explained & signed. Placed in chart
Referral for [facility] entered in [facility] - notified Loraine Carpenter liaison from [facility]
PLAN: home with [facility], ryan to transport
--- NOTE | 2024-05-11 10:29 | W.PN.HOSP.TC ---
Today's Communication/Plan
-
dc
Assessment / Plan
Assessment / Plan
74yo M with skin CA, throat CA, prostate CA, hypothyroidism, spinal stimulator, COPD, HLD came to the hospital with profound weakness. He fell from his bed and could not get up this AM. While in ED he was found to have RUL and RML pneumonia. Has
long Hx of dysphaagia and was offered PEG 15 years ago, since then - managed at home with mostly liquid diet.
ALso found b/l LE DVT. Patient with Hx of FactorV leiden. Will be started on anticoagulation, counseled extensively to avoid trauma and always have someone besides when ambulating due to Hx of previous falls. Same sicussed with daughter bedside on
the day of discharge. Further management for blood thinner will be provided by established garage door opener installer. Procalcitonin improved, ESR 32 only, no fevers and WBC improving - reasonable to switch to oral Abx to continue treatment at home. PT/OT
recommended outpatient PT with discharge patient home. Medically stable for d/c
A/P:
#RML and RUL pneumonia with unspecified organism, concern for aspiration with Hx of dysphagia
Dysphagia diet
MANAGER LICENSING: patient s open for PEG discussion if needed
COVID-19 and Influenza PCR neg
sputum Cx if possible
Bcx NTD
Ceftriaxone (not true allergy to penicillins)\\Doxy on admission, now with concern for aspiration - switch to Unasyn
follow procalcitonin
S.pneumonia and legionella urinary AG neg
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
anticoagulation: heparin while r/o advanced dysphagia, then Eliquis on D/C
#Ambulatory disfunction 2/2 acute disease, dehydration exacerbated by Temazepam
PT/OT
Fall precautions
#Hypothyroidism
TSH WNL, cont Synthroid
#Acute hypoxic insufficiency
#COPD with mild exacerbation
cont bronchodilators
short course of steroids
Wean off O2
#RUPA
resolved on hydration, probably 2/2 poor oral intake
Cr baseline 1.0
#In hospital delirium
2/2 sundowning, transient
decrease temazepam
frequent reorientation
#Chronic pain
#HLD
#HTN, essential
#Neuropathy
#Insomnia
cont home meds
DVT ppx Hep
Full code - discussed in details with patient
I have spent at least 35min reviewing chart, test results and direct patient care
Anticipated Discharge: Today
Subjective/Interval History
-
Date of Service: May 11, 2024
Objective Data
-
Labs:
Laboratory Results
05/11/24
08:14
WBC 12.8 H
Hgb 13.3
Hct 39.2
Plt Count 196
Sodium 137
Potassium 3.8
Chloride 98
Carbon Dioxide 32 H
BUN 15
Creatinine 1.0
Glucose 94
Calcium 8.9
Total Bilirubin 0.9
AST 32
ALT 19
Alkaline Phosphatase 97
Vital Signs:
Vital Signs
Temp Pulse Resp BP Pulse Ox
98.4 F 92 18 165/86 93
05/11/24 07:25 05/11/24 09:05 05/11/24 07:50 05/11/24 09:05 05/11/24 08:50
I&O
05/10/24 05/11/24 05/12/24
06:59 06:59 06:59
Intake Total 960 / 960 1140 / 1140
Output Total 975 / 975 860 / 860
Balance -15 / -15 280 / 280
Review of Systems
-
History Source: Patient
All other systems: Reviewed and negative
Physical Exam
-
General: Comfortable
HEENT: Normocephalic
Cardiac: Regular Rhythm
GI: Soft
Neuro: Awake, Alert, Oriented and AO x 3
Psych: Calm
--- NOTE | 2024-05-11 10:33 | W.DCSUMMARY ---
Discharge Summary
Discharge Data
Date of Admission: 05/08/24
Date of Discharge: 05/11/24
-
Pending Results: No
Hospital Course
4yo M with skin CA, throat CA, prostate CA, hypothyroidism, spinal stimulator, COPD, HLD came to the hospital with profound weakness. He fell from his bed and could not get up this AM. While in ED he was found to have RUL and RML pneumonia. Has long
Hx of dysphaagia and was offered PEG 15 years ago, since then - managed at home with mostly liquid diet.
ALso found b/l LE DVT. Patient with Hx of FactorV leiden. Will be started on anticoagulation, counseled extensively to avoid trauma and always have someone besides when ambulating due to Hx of previous falls. Same sicussed with daughter bedside on
the day of discharge. Further management for blood thinner will be provided by established pile driver engineer. Procalcitonin improved, ESR 32 only, no fevers and WBC improving - reasonable to switch to oral Abx to continue treatment at home. PT/OT
recommended outpatient PT with discharge patient home. Medically stable for d/c
I have spent at least 35min reviewing chart, test results and direct patient care
Patient was managed for:
#RML and RUL pneumonia with unspecified organism, concern for aspiration with Hx of dysphagia
#Factor V leiden with acute b/l LE DVT
#Ambulatory disfunction 2/2 acute disease, dehydration exacerbated by Temazepam
#Hypothyroidism
#Acute hypoxic insufficiency
#COPD with mild exacerbation
#RUPA
#In hospital delirium
#Chronic pain
#HLD
#HTN, essential
#Neuropathy
#Insomnia
Discharge Plan
-
Patient Disposition: Home (Routine Discharge)
Discharge Diagnosis/Procedures: Pneumonia
Diet: Other diet
Additional Diets: Minced and Moist, nectar-thick liquids
Activity: With assistance
Referrals:
Rob Seth DO [Family Provider] -
Additional Discharge Medication Instructions: High risk of bleeding with falls - please have someone assisting you when you ambulating
Prescriptions:
New
Eliquis DVT-PE Treat 30D Start 5 mg (74 tabs) tablets,dose pack
See Rx Instructions .ROUTE .COMPLEX Qty: 74 0RF
Rx Instructions:
take 10mg BID for 6 days, then 5mg BID until stopped by the doctor
doxycycline hyclate 100 mg Capsule
100 mg PO Q12 Qty: 10 0RF
temazepam 7.5 mg Capsule
7.5 mg PO HS Qty: 30 0RF
pantoprazole 40 mg Tablet,Delayed Release (Dr/Ec)
40 mg PO DAILY Qty: 30 0RF
multivitamin with folic acid [Tab-A-Allyson] 400 mcg Tablet
1 tab PO DAILY Qty: 30 0RF
amoxicillin-pot clavulanate 875-125 mg tablet
1 tab PO Q12H Qty: 10 0RF
Continued
hydrocodone-acetaminophen 5-325 mg Tablet
1 tab PO Q8H PRN (Reason: severe pain)
therapeutic multivitamin Tablet
1 tab PO NOON
temazepam 30 mg Capsule
30 mg PO HS
levothyroxine 50 mcg Tablet
50 mcg PO DAILY
albuterol sulfate 90 mcg/actuation Hfa Aerosol Inhaler
1 puff INHALATION R Q4HPRN PRN (Reason: sob)
omega 2-bbx-ryt-fish oil [Fish Oil] 60-90-500 mg Capsule
1 cap PO NOON
magnesium oxide 200 mg magnesium Tablet
200 mg PO NOON
turmeric 400 mg Capsule
800 mg PO NOON
Discontinued
aspirin 500 mg Tablet
1,000 mg PO DAILYPRN PRN (Reason: mild pain)
Omeprazole Gummies
20 mg PO DAILY
Discharge Orders:
Discharge Patient (As Directed); Ordered 05/11/24
Ordered By: Isaac Díaz
Discharge Date and Time
Print Language: NIUEAN
== END 2024-05-11 11:05 | disposition home or self-care (01) | DRG 299 ==
LOC: 4 EAST ACU 10:54
PROVIDERS: ADMITTING PHYSICIAN Internal Medicine; EMERGENCY PHYSICIAN Emergency Medicine; FAMILY PHYSICIAN Family Medicine
DX: I82.453 Acute embolism and thrombosis of peroneal vein, bilateral (principal); J69.0 Pneumonitis due to inhalation of food and vomit; J44.1 Chronic obstructive pulmonary disease with (acute) exacerbation; F05 Delirium due to known physiological condition; D68.51 Activated protein C resistance; N17.9 Acute kidney failure, unspecified; J44.0 Chronic obstructive pulmonary disease with (acute) lower respiratory infection; R29.6 Repeated falls; E03.9 Hypothyroidism, unspecified; E78.00 Pure hypercholesterolemia, unspecified; E86.0 Dehydration; R09.02 Hypoxemia; G62.9 Polyneuropathy, unspecified; I10 Essential (primary) hypertension; G89.29 Other chronic pain; Z87.891 Personal history of nicotine dependence; W06.XXXA Fall from bed, initial encounter
CPT/HCPCS: 70450; 71046; 71275; 73502; 74230; 80048; 80053; 81003; 81015; 82570; 84145; 84300; 84443; 85025; 85379; 85652; 85730; 87040; 87086; 87449; 87502; 87811; 87899; 92610; 92611; 93005; 93970; 94640; 96374; 96375; 97162; 97166; 99285; Q9967